=== PATIENT | female | born 1975 | race Caucasian/White ===

== ENCOUNTER 2017-11-09 10:15 | Inpatient (IN) | payer OTHER ==
[~2017-11-09] VITALS: Ht 147.3 cm; Wt 56.7 kg
[2017-11-28] MEDS ORDERED: PRENATAL TABLE1 EAC1 PO (09:01)
== END 2017-12-01 12:27 | disposition home or self-care (01) | DRG 766 ==
LOC: LDR 10:15 → EDSTATUS 10:15 → ADM 10:15 → SURG-SUITE 11-28 08:00 → O/R 11-28 08:00 → LDR 11-28 10:15 → SURG-SUITE 11-28 13:55
PROVIDERS: Obstetrics & Gynecology
PROC: 4A1HXCZ Monitoring of Products of Conception, Cardiac Rate, External Approach (ICD-10-PCS; 2017-11-28)
PROC: 4A033R1 Measurement of Arterial Saturation, Peripheral, Percutaneous Approach (ICD-10-PCS; 2017-11-28)
PROC: 10D00Z1 Extraction of Products of Conception, Low, Open Approach (ICD-10-PCS; principal; 2017-11-28 10:30)
DX: O34.211 Maternal care for low transverse scar from previous cesarean delivery (principal); Z3A.39 39 weeks gestation of pregnancy; Z37.0 Single live birth

== ENCOUNTER 2017-11-16 08:42 | Outpatient (CLI) | payer OTHER | END 2017-11-16 09:35 | disposition home or self-care (01) | LOC: NST 08:42 | DX: Z34.83 Encounter for supervision of other normal pregnancy, third trimester (principal) ==

== ENCOUNTER 2019-06-12 08:37 | Outpatient (CLI) | payer OTHER ==
[~2019-06-12 08:37] MED LIST: PRENATAL TABLE1 EAC1 PO
== END 2019-06-12 08:41 | disposition home or self-care (01) ==
LOC: SONOGRAMA 08:37
DX: E04.2 Nontoxic multinodular goiter (principal)